=== PATIENT | male | born 1950 | race American Indian/Alaskan Native ===

== ENCOUNTER 2024-02-19 12:20 | Inpatient (IN) | payer OTHER ==
[2024-02-19 12:39] VITALS: BMI 27.2
[2024-02-19 15:54] LABS: BASO % 0.5 % (0-2.0); HEMATOCRIT 42.6 % (35.4-49); LYMPH % 30.6 % (8-40); MCH 27.9 pg (25.7-33.7); MCHC 32.8 g/dl (32.0-35.9); MEAN PLT VOLUME 8.1 fl (7.5-11.1); MONO % 9.1 % (3.8-10.2); NEUT % 57.8 % (42.8-82.8); PLATELET COUNT 256 10^3/uL (134-434); RBC 5.02 M/mm3 (4.00-5.60); RDW 16.9 % (11.9-15.9); WHITE BLOOD COUNT 11.6 K/mm3 (4.0-10.0)
[2024-02-19 16:00] LABS: INR 1.03 (0.83-1.09); PROTHROMBIN TIME (PATIENT) 11.6 SEC (9.7-13.0)
[2024-02-19 16:02] LABS: ACTIVATED PTT 31.1 SECONDS (25.2-36.5)
[2024-02-19 16:24] LABS: CALCIUM 9.8 mg/dL (8.5-10.1)
[2024-02-19 16:28] LABS: CREATININE 1.3 mg/dL (0.55-1.3)
[2024-02-19 16:29] LABS: BILIRUBIN,TOTAL 0.4 mg/dL (0.2-1)
[2024-02-19] MEDS ORDERED: PIPERACILLIN/TAZOB 4.5 GM 3.375 GM in DEXTROSE 5%-WATER 100 ML IVPB ONE (18:07)
[2024-02-19] MEDS ORDERED: PIPERACILLIN/TAZOB 3.375 GM 3.375 GM/50 ML BAG IVPB ONE (18:11)
[2024-02-19] MEDS: PIPERACILLIN/TAZOB 3.375 GM 3.375 GM/50 ML BAG IVPB ONE (18:24)
[2024-02-19] MEDS ORDERED: VANCOMYCIN 1 GM PREMIX (F) 1 GM/200 ML BAG ONE ×2 (19:11→19:26)
[2024-02-19] MEDS: VANCOMYCIN 1,000 MG in DEXTROSE 5%-WATER - 250 ML IVPB ONE (19:25)
[2024-02-20] MEDS ORDERED: VANCOMYCIN/WATER 1250 MG 1,250 MG/250 ML BAG IVPB SCH (02:15)
[2024-02-20] MEDS ORDERED: PIPERACILLIN/TAZOB 3.375 GM 3.375 GM/50 ML BAG IVPB ONE ×2 (02:25→02:27)
[2024-02-20] MEDS ORDERED: ACETAMINOPHEN 1000 MG/100 ML BAG IVPB PRN (02:30)
[2024-02-20] MEDS ORDERED: ALBUTEROL SO4 HFA INHALER IH PRN (02:30)
[2024-02-20] MEDS: PIPERACILLIN/TAZOB 3.375 GM 3.375 GM in DEXTROSE 5%-WATER - 50 ML IVPB SCH (02:34)
[2024-02-20] MEDS: amLODIPine BESYLATE 5 MG TABLET (FP) PO ONE (04:22)
[2024-02-20] MEDS: INSULIN ASPART SLIDING SCALE (NOVOLOG) 1 VIAL SQ SCH (07:37)
[2024-02-20] MEDS: VANCOMYCIN/WATER 1250 MG 1,250 MG/250 ML BAG IVPB SCH (08:16)
[2024-02-20] MEDS: ASPIRIN COATED 81 MG TABLET.EC PO SCH (09:20)
[2024-02-20] MEDS: ENALAPRIL MALEATE 10 MG TABLET PO SCH (09:20)
[2024-02-20] MEDS: CLOPIDOGREL BISULFATE 75 MG TABLET (FP) PO SCH (09:20)
[2024-02-20] MEDS: amLODIPine BESYLATE 5 MG TABLET (FP) PO SCH (09:20)
[2024-02-20] MEDS: RANOLAZINE E.R. 500 MG TABLET (FP) PO SCH (09:20)
[2024-02-20] MEDS: ENOXAPARIN NA (PORCINE) 40 MG/0.4 ML DISP.SYRIN SQ SCH (09:20)
[2024-02-20 09:35] LABS: PH,URINE 7.5 (5.0-8.0); URINE APPEARANCE CLEAR; URINE BILIRUBIN NEGATIVE (NEGATIVE); URINE COLOR YELLOW; URINE GLUCOSE (UA) 2+ (NEGATIVE); URINE KETONE NEGATIVE (NEGATIVE); URINE LEUK ESTERASE NEGATIVE (NEGATIVE); URINE NITRITE NEGATIVE (NEGATIVE); URINE PROTEIN NEGATIVE (NEGATIVE); URINE UROBILINOGEN 0.2 mg/dL (0.2-1.0)
[2024-02-20 09:42] LABS: BASO % 0.7 % (0-2.0); EOS % 2.5 % (0-4.5); HEMATOCRIT 39.3 % (35.4-49); HEMOGLOBIN 12.9 GM/dL (11.7-16.9); LYMPH % 26.8 % (8-40); MCHC 32.7 g/dl (32.0-35.9); MEAN CELL VOLUME 85.5 fl (80-96); MONO % 9.5 % (3.8-10.2); NEUT % 60.5 % (42.8-82.8); PLATELET COUNT 218 10^3/uL (134-434); RDW 16.8 % (11.9-15.9); WHITE BLOOD COUNT 9.5 K/mm3 (4.0-10.0)
[2024-02-20 10:01] LABS: POTASSIUM 4.5 mmol/L (3.5-5.1)
[2024-02-20] MEDS: PIPERACILLIN/TAZOB 3.375 GM 50 ML IVPB SCH (10:08)
[2024-02-20 10:18] LABS: ALBUMIN 3.4 g/dl (3.4-5.0); CALCIUM 9.3 mg/dL (8.5-10.1)
[2024-02-20 10:19] LABS: BLOOD UREA NITROGEN 22.3 mg/dL (7-18); MAGNESIUM 1.8 mg/dL (1.8-2.4)
[2024-02-20 10:21] LABS: CREATININE 1.4 mg/dL (0.55-1.3)
[2024-02-20 10:22] LABS: BILIRUBIN,TOTAL 0.6 mg/dL (0.2-1)
[2024-02-20] MEDS: EMPAGLIFLOZIN (JARDIANCE) 10 MG TABLET PO SCH (10:35)
[2024-02-20] MEDS: ATORVASTATIN CA 20 MG TABLET (FP) PO SCH (21:43)
[2024-02-20] MEDS: INSULIN (LEVEMIR) 100 UNITS/ML UNITS SQ SCH (21:51)
[2024-02-20] MEDS: HYDROCHLOROTHIAZIDE 12.5 MG CAPSULE (FP) PO SCH (23:00)
[2024-02-21 08:22] LABS: BASO % 0.7 % (0-2.0); EOS % 2.4 % (0-4.5); HEMATOCRIT 41.6 % (35.4-49); HEMOGLOBIN 14.1 GM/dL (11.7-16.9); LYMPH % 28.9 % (8-40); MCH 28.8 pg (25.7-33.7); MCHC 33.8 g/dl (32.0-35.9); MEAN CELL VOLUME 85.2 fl (80-96); MEAN PLT VOLUME 8.1 fl (7.5-11.1); MONO % 10.8 % (3.8-10.2); NEUT % 57.2 % (42.8-82.8); PLATELET COUNT 229 10^3/uL (134-434); RBC 4.88 M/mm3 (4.00-5.60); RDW 16.9 % (11.9-15.9); WHITE BLOOD COUNT 10.2 K/mm3 (4.0-10.0)
[2024-02-21 08:38] LABS: CHLORIDE 103 mmol/L (98-107); POTASSIUM 4.4 mmol/L (3.5-5.1); SODIUM 137 mmol/L (136-145)
[2024-02-21 08:42] LABS: ALBUMIN 3.8 g/dl (3.4-5.0); ANION GAP 6 mmol/L (4-13); BLOOD UREA NITROGEN 24.6 mg/dL (7-18); CALCIUM 9.8 mg/dL (8.5-10.1); CO2 27 mmol/L (21-32); GLUCOSE,RANDOM 104 mg/dL (74-106)
[2024-02-21 08:44] LABS: CREATININE 1.5 mg/dL (0.55-1.3); SGOT/AST 18 U/L (15-37); SGPT/ALT 22 U/L (13-61)
[2024-02-21 08:47] LABS: BILIRUBIN,TOTAL 0.7 mg/dL (0.2-1); TOT PROT 7.6 g/dl (6.4-8.2)
[2024-02-21 08:48] LABS: ALK PHOS 74 U/L (45-117)
[2024-02-21 11:06] LABS: ERYTHROCYTE SEDIMENTATION RATE 23 mm/hr (0-20)
[2024-02-21] MEDS: SODIUM CHLORIDE 0.9% 500 ML INFUS.BAG IV ONE ×2 (12:42→17:21)
[2024-02-21] MEDS ORDERED: LIDOCAINE HCL 1%, 10 MG/ML (20ML VIAL) ONE (15:05)
[2024-02-21] MEDS ORDERED: HEPARIN NA (PORCINE) 5,000 UNITS/ML 1ML VIAL ONE ×2 (15:05→19:06)
[2024-02-21] MEDS: PIPERACILLIN/TAZOB 3.375 GM 50 ML IVPB SCH (17:22)
[2024-02-21] MEDS ORDERED: DEXTROSE 50%-WATER - 25 GM/50 ML VIAL IVPUSH ONE (17:36)
[2024-02-21] MEDS: DEXTROSE 5%-WATER - 1,000 ML IV SCH ×2 (17:50→20:58)
[2024-02-21] MEDS ORDERED: DEXTROSE 50%-WATER 25 GM/50 ML DISP.SYRIN ONE (18:06)
[2024-02-21] MEDS ORDERED: ONDANSETRON 4 MG/2 ML VIAL IVPUSH PRN ×2 (18:07→19:23)
[2024-02-21] MEDS ORDERED: LACTATED RINGERS SOLUTION 1,000 ML IV SCH (18:15)
[2024-02-21] MEDS ORDERED: MIDAZOLAM HCL 2 MG/2 ML SINGLE DOSE VIAL ONE (18:15)
[2024-02-21] MEDS: ceFAZolin SODIUM 1 GM VIAL IVPB ONE (18:33)
[2024-02-21] MEDS ORDERED: ceFAZolin SODIUM 1 GM VIAL ONE (18:35)
[2024-02-21] MEDS: LIDOCAINE HCL 1%, 10 MG/ML (20ML VIAL) NR ONE (18:41)
[2024-02-21] MEDS ORDERED: ALBUTEROL SO4 HFA INHALER IH PRN (19:23)
[2024-02-21 19:51] LABS: HEMATOCRIT 39.9 % (35.4-49); HEMOGLOBIN 13.2 GM/dL (11.7-16.9); MCH 28.1 pg (25.7-33.7); MEAN CELL VOLUME 85.1 fl (80-96); MEAN PLT VOLUME 7.8 fl (7.5-11.1); PLATELET COUNT 218 10^3/uL (134-434); RBC 4.69 M/mm3 (4.00-5.60); RDW 16.9 % (11.9-15.9)
[2024-02-21] MEDS: LACTATED RINGERS SOLUTION 1,000 ML IV SCH (19:55)
[2024-02-21] MEDS ORDERED: CLOPIDOGREL BISULFATE 75 MG TABLET (FP) ONE (20:25)
[2024-02-21] MEDS: CLOPIDOGREL BISULFATE 75 MG TABLET (FP) PO SCH (20:29)
[2024-02-21] MEDS: RANOLAZINE E.R. 500 MG TABLET (FP) PO SCH (21:29)
[2024-02-21] MEDS: HYDROCHLOROTHIAZIDE 12.5 MG CAPSULE (FP) PO SCH (21:29)
[2024-02-21] MEDS: ATORVASTATIN CA 20 MG TABLET (FP) PO SCH (21:30)
[2024-02-21] MEDS: INSULIN (LEVEMIR) 100 UNITS/ML UNITS SQ SCH (22:35)
[2024-02-21] MEDS ORDERED: LACTATED RINGERS SOLUTION 1,000 ML/1,000 ML INFUS.BAG IV SCH (23:00)
[2024-02-21] MEDS: LACTATED RINGERS SOLUTION 1,000 ML/1,000 ML INFUS.BAG IV SCH (23:55)
[2024-02-22] MEDS: PIPERACILLIN/TAZOB 3.375 GM 50 ML IVPB SCH (02:58)
[2024-02-22] MEDS ORDERED: PIPERACILLIN/TAZOB 3.375 GM 50 ML IVPB SCH (03:00)
[2024-02-22] MEDS: EMPAGLIFLOZIN (JARDIANCE) 10 MG TABLET PO SCH (06:06)
[2024-02-22] MEDS: INSULIN ASPART SLIDING SCALE (NOVOLOG) 1 VIAL SQ SCH (06:21)
[2024-02-22] MEDS ORDERED: VANCOMYCIN/WATER 1250 MG 1,250 MG/250 ML BAG IVPB SCH (08:00)
[2024-02-22 09:23] LABS: BASO % 0.4 % (0-2.0); EOS % 1.5 % (0-4.5); HEMOGLOBIN 12.9 GM/dL (11.7-16.9); LYMPH % 23.9 % (8-40); MCH 28.3 pg (25.7-33.7); MCHC 33.1 g/dl (32.0-35.9); MEAN CELL VOLUME 85.5 fl (80-96); MEAN PLT VOLUME 8.1 fl (7.5-11.1); MONO % 9.9 % (3.8-10.2); NEUT % 64.3 % (42.8-82.8); PLATELET COUNT 196 10^3/uL (134-434); RBC 4.56 M/mm3 (4.00-5.60); RDW 16.8 % (11.9-15.9); WHITE BLOOD COUNT 8.7 K/mm3 (4.0-10.0)
[2024-02-22 09:42] LABS: POTASSIUM 4.3 mmol/L (3.5-5.1)
[2024-02-22 09:46] LABS: CALCIUM 9.1 mg/dL (8.5-10.1)
[2024-02-22 09:50] LABS: CREATININE 1.3 mg/dL (0.55-1.3)
[2024-02-22] MEDS: ENALAPRIL MALEATE 10 MG TABLET PO SCH (10:48)
[2024-02-22] MEDS: ASPIRIN 81 MG CHEWABLE TABLETS PO SCH (10:49)
[2024-02-22] MEDS: amLODIPine BESYLATE 5 MG TABLET (FP) PO SCH (10:49)
[2024-02-22] MEDS ORDERED: DOXYCYCLINE HYCLATE 100 MG CAPSULE PO SCH (18:00)
[2024-02-22] MEDS ORDERED: CEPHALEXIN MONOHYDRATE 500 MG CAPSULE (UD) PO SCH (22:00)
[2024-02-22] MEDS: CEPHALEXIN MONOHYDRATE 500 MG CAPSULE (UD) PO SCH (22:20)
[2024-02-23 04:41] VITALS: RESP 18
[2024-02-23 10:31] VITALS: BP 149/60; PULSE 60; TEMP 97.7
== END 2024-02-23 11:55 | disposition home or self-care (01) | DRG 253 ==
LOC: JER 12:20 → JERBED 18:39 → J6S 02-20 03:00
PROVIDERS: ADMIT Internal Medicine; ATTEND Internal Medicine
PROC: B40DYZZ Plain Radiography of Aorta and Bilateral Lower Extremity Arteries using Other Contrast (ICD-10-PCS; 2024-02-21)
PROC: B40FYZZ Plain Radiography of Right Lower Extremity Arteries using Other Contrast (ICD-10-PCS; 2024-02-21)
PROC: 047K3ZZ Dilation of Right Femoral Artery, Percutaneous Approach (ICD-10-PCS; principal; 2024-02-21 20:00)
DX: E11.51 Type 2 diabetes mellitus with diabetic peripheral angiopathy without gangrene (principal); L03.115 Cellulitis of right lower limb; E78.5 Hyperlipidemia, unspecified; I11.0 Hypertensive heart disease with heart failure; I50.9 Heart failure, unspecified; E11.621 Type 2 diabetes mellitus with foot ulcer; L97.519 Non-pressure chronic ulcer of other part of right foot with unspecified severity
CPT/HCPCS: 36415; 73630-TC-RT-FY; 75635-TC; 76000-TC-FY; 80048; 80053; 80061; 81003; 82962; 83036; 83735; 84100; 85025; 85027; 85610; 85651; 85730; 86140; 86850; 86900; 86901; 87077; 87081; 93005; 93010; 93306-TC; 94760; 99285-25; C1760; G0480; J1644; Q9967